=== PATIENT | female | born 1960 | race Caucasian/White ===

== ENCOUNTER 2023-01-03 14:42 | Outpatient (CLI) | payer BC | END 2023-01-03 14:43 | disposition home or self-care (01) | LOC: CSHMAMMO 14:42 | PROVIDERS: ATTEND Family Medicine | DX: Z12.31 Encounter for screening mammogram for malignant neoplasm of breast (principal); Z78.0 Asymptomatic menopausal state | CPT/HCPCS: 77063; 77067; 77080 ==